=== PATIENT | female | born 1995 | race Caucasian/White ===

== ENCOUNTER → 2019-01-14 | Emergency (ER) | payer OTHER ==
[~2019-01-14] VITALS: Ht 152.4 cm; Wt 97.5 kg
== END | disposition home or self-care (01) ==
LOC: ER 19:41
DX: B96.0 Mycoplasma pneumoniae [M. pneumoniae] as the cause of diseases classified elsewhere (principal); N39.0 Urinary tract infection, site not specified

== ENCOUNTER 2019-11-21 16:46 | Emergency (ER) | payer OTHER ==
[~2019-11-21] VITALS: Ht 160 cm; Wt 95.7 kg
== END 2019-11-21 20:54 | disposition home or self-care (01) ==
LOC: ER 16:46
DX: B34.9 Viral infection, unspecified (principal); Z03.818 Encounter for observation for suspected exposure to other biological agents ruled out; R50.9 Fever, unspecified; M54.2 Cervicalgia

== ENCOUNTER 2021-09-17 15:48 | Emergency (ER) | payer OTHER ==
[~2021-09-17] VITALS: Ht 162.6 cm; Wt 108.9 kg
== END 2021-09-17 18:40 | disposition home or self-care (01) ==
LOC: ER 15:48
DX: B34.9 Viral infection, unspecified (principal); Z20.822 Contact with and (suspected) exposure to COVID-19